=== PATIENT | male | born 1950 | race Caucasian/White ===

== ENCOUNTER 2020-09-11 19:04 | Inpatient (IN) | payer OTHER, SELFPAY ==
[2020-09-11] VITALS (19 sets, daily range): BP systolic 92–135; BP diastolic 69–116; PULSE 98–105; RESP 16–28; TEMP 36; O2SAT 92–98; BMI 27.9
--- NOTE | ~2020-09-11 | CT_ITS ---
EXAMINATION: CT brain wo con INDICATION: Lethargy, altered mental status COMPARISON: None TECHNIQUE: Standard unenhanced head CT. The dose-length product (DLP) was 681.00 mGy-cm. The mA was a djusted according to patient size. Iterative reconstruction technique was employed. FINDINGS: There is no acute intraparenchymal hemorrhage. No evidence of mass lesion. No evidence of a cute infarction. There is encephalomalacia in the right frontal lobe, consistent with prior infarctio n. There is mild periventricular and subcortical hypodensity probably related to small vessel ischemi c disease. There is mild prominence of the sulci and ventricles related to cerebral atrophy. Intracra nial calcified cerebral atherosclerosis is noted. There are no extra-axial collections. There is no m ass effect or midline shift. The orbits and soft tissues are unremarkable. The visualized sinuses an d mastoid air cells are well aerated. IMPRESSION: 1. 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 2. Age related findings. Reviewed, dictated and finalized at location A.
--- NOTE | ~2020-09-11 | XR_ITS ---
EXAMINATION: XR chest 1V portable DATE: 09/13/2020 02:20 INDICATION: Hypoxia TECHNIQUE: frontal view of the chest was obtained. COMPARISON: Chest radiograph dated 09/11/2020 FINDINGS: Unchanged linear band of discoid atelectasis/scarring extending across the right midlung zone. No oth er airspace opacities, pulmonary edema, pleural effusion or pneumothorax. The cardiomediastinal silh ouette is normal. IMPRESSION: 1. Linear discoid atelectasis/scarring in the right midlung zone. Reviewed, dictated and finalized at location A.
--- NOTE | ~2020-09-11 | XR_ITS ---
EXAMINATION: XR chest 1V INDICATION: Transient alteration of awareness TECHNIQUE: AP view of the chest is obtained. COMPARISON: None available FINDINGS: Cardiomegaly is noted. The lungs are free of acute opacities. There is no pleural effusion or pneumothorax. IMPRESSION: 1. Cardiomegaly. Reviewed, dictated and finalized at location A. IMPRESSION: 1. Cardiomegaly.
--- NOTE | 2020-09-11 19:16 | ECG_ITS ---
Measurements Intervals [place] Rate: 101 P: 117 FL: 153 QRS: 146 QRSD: 164 T: -24 QT: 422 QTc: 548 Interpretive Statements SINUS TACHYCARDIA ATRIAL AND VENTRICULAR PREMATURE COMPLEXES RIGHT BUNDLE BRANCH BLOCK LEFT POSTERIOR FASCICULAR BLOCK BASELINE ARTIFACT- I, II, AVR, AVL, AVF, V1-V2, V4-V6 ABNORMAL ECG Electronically Signed On 09-12-2020 5:48:46 CDT by Nagi Swenson D.O.
--- NOTE | 2020-09-11 19:39 | ED.AMS ---
HPI - Altered Mental Status General Chief Complaint: Altered Mental Status Stated Complaint: abnormal labs and lethargy- unknown time Time Seen by Provider: 09/11/20 19:05 History of Present Illness HPI narrative: 70 yo male presents from [facility] for altered mental status. Over the past several days he has become increasing lethargic with slurred speech. He is currently in rehab recovering from a Right tib/fib fracture. He had labs done there and was found to have moderate hyponatremia, subtherapeutic dilantin, and high phenobarbital levels. He reports feeling very fatigued and intermittently SOB. No nausea, vomiting, diarrhea, abdominal pain, dysuria, hematuria. Related Data Home Medications Medication Instructions Recorded Confirmed bimatoprost 1 drp EACH EYE HS 09/11/20 09/11/20 cholecalciferol (vitamin D3) 50 mcg PO DAILY 09/11/20 09/11/20 hydrocodone-acetaminophen 1 tablet PO Q6H PRN 09/11/20 09/11/20 phenobarbital 32.4 mg PO TID 09/11/20 09/11/20 phenytoin sodium extended 100 mg PO QID 09/11/20 09/11/20 polyethylene glycol 3350 [Miralax] 17 g PO DAILY 09/11/20 09/11/20 primidone 250 mg PO Q8H 09/11/20 09/11/20 Allergies Allergy/AdvReac Type Severity Reaction Status Date / Time Penicillins Allergy Rash Verified 09/11/20 23:41 Review of Systems Review of Systems: All systems reviewed & are unremarkable except as noted in HPI and below Constitutional: Constitutional: Denies fever(s) Eyes: Eyes: Reports no additional eye complaints ENT: Denies sore throat Cardiovascular: Cardiovascular: Denies chest pain Respiratory: Respiratory: Reports dyspnea Gastrointestinal: Gastrointestinal: Denies abdominal pain, Denies diarrhea, Denies nausea and Denies vomiting Genitourinary: Genitourinary: Denies hematuria and Denies dysuria Neurologic: Denies dizziness and Reports weakness Endocrine: Endocrine: Reports fatigue PMFSH Past Medical History Medical History (Updated 09/12/20 @ 01:24 by Maximilian Oswald MD) Seizure Tibia/fibula fracture Family History Family History Other Unknown family medical history Social History Social History Smoking status: Unknown if ever smoked Alcohol intake: unknown Substance use: unknown Substance use type: does not use Gender identity (if verbalized by the patient): Male Spiritual care concerns: No Exam Const: General: no acute distress, confusion and ill appearing Orientation/consciousness: patient oriented x3 HENMT: Head: normal to inspection Mouth: Yes dry mucous membranes Eyes: Pupils: Equal, round and reactive pupils present EOM: EOMs intact bilaterally Neck: Neck: normal visual inspection Resp: Effort & Inspection: normal respiratory effort Auscultation: clear to auscultation bilaterally Cardio: Rate: regular rate Rhythm: regular rhythm GI: GI Palp: Yes Soft to palpation and No Tenderness to palpation present (GI) Skin: General skin exam: normal color and no jaundice Wounds: wound noted Neuro: General: patient oriented x3, moves all extremities and CN's II-XI intact bilaterally Speech: Abnormal speech present slurred Extrem: General: edema bilateral (1+) Course Vital Signs Vital signs: Vital Signs Pulse Rate 105 H 09/11/20 19:07 Respiratory Rate 28 H 09/11/20 19:07 Blood Pressure 103/75 09/11/20 19:07 Pulse Oximetry 96 09/11/20 19:07 Temperature 36.0 C L 09/11/20 22:39 Pulse Rate 98 09/11/20 22:39 Respiratory Rate 24 H 09/11/20 22:39 Blood Pressure 108/86 09/11/20 22:39 Pulse Oximetry 96 09/11/20 22:39 MDM - Altered Mental Status MDM Narrative Medical decision making narrative: He appears quite dehydrated on exam. He is severely hyponatremic. Likely hypovolemic hyponatremia due to poor intake. I will admit for hydration and slow correction of hyponatremia Differential Diagnosis Differential diagnosis: Unlikely delirium, ellen
[2020-09-11 19:59] LABS: Basophils Percent Auto 0.2 % (0.2-1.2); Eosinophils Percent Auto 0.2 % (0-4.4); Hematocrit 41.5 % (42.0-52.0); Immature Granulocyte Percent A 1.6 % (0-0.5); Lymphocytes Percent Auto 14.2 % (18.3-44.2); Mean Corpuscular HGB Conc 33.7 g/dl (32-36); Mean Corpuscular Hemoglobin 30.3 pg (26-34); Mean Corpuscular Volume 89.8 fl (80-100); Mean Platelet Volume 10.9 fl (7.4-10.4); Monocytes Absolute Auto 1.5 K/mm3 (0.1-0.6); Monocytes Percent Auto 11.8 % (2.6-8.5); Neutrophils Absolute Auto 9.1 K/mm3 (1.3-6.7); Platelet Count Result 234 k/mm3 (150-375); Red Blood Count 4.62 M/mm3 (4.6-6.20); White Blood Count 12.7 K/mm3 (4.5-10.0)
[2020-09-11 20:06] LABS: Lactic Acid Reflex 2.1 mmol/L (0.7-2.1)
[2020-09-11 20:07] LABS: Alveolar/Arterial O2 Gradient 57.9 mmHg; Base Excess ABG -1.9 mEq/l (+/-2.0); Fractional Inspired Oxygen 21 %; HCO3 ABG 20.1 mEq/l (22.0-26.0); Oxygen Content ABG 18.4 %vol (16.0-22.0); Oxygen Saturation ABG 92.7 % (95.0-100.0); Oxyhemoglobin 90.5 % THb (90.0-100.0); PCO2 ABG 27.5 mmHg (35.0-45.0); PO2 ABG 58.9 mmHg (80.0-100.0); Total Hemoglobin 14.5 g/dL (12.0-18.0); pH ABG 7.481 (7.350-7.450)
[2020-09-11 20:07] LABS: Ammonia < 9 umol/L (9-30)
[2020-09-11 20:08] LABS: Device ROOM AIR; Modified Allen's Test Pass; Site Drawn RIGHT RADIAL
[2020-09-11 20:08] LABS: INR 1.4; Prothrombin Time 17.4 Seconds (11.1-14.7)
[2020-09-11 20:09] LABS: Partial Thromboplastin Time 33.7 SECONDS (22.3-36.8)
[2020-09-11 20:11] LABS: Phenytoin Dilantin 9 ug/mL (10-20)
[2020-09-11 20:23] LABS: Alanine Aminotransferase 48 U/L (4-50); Albumin Level 3.1 g/dL (3.5-5.1); Alkaline Phosphatase 141 U/L (38-126); Anion Gap 7 mmol/L (8-16); Aspartate Amino Transferase 71 U/L (17-59); Bilirubin,Total 0.6 mg/dL (0.2-1.3); Blood Urea Nitrogen 51 mg/dL (9-20); Calcium 9.5 mg/dL (8.4-10.2); Carbon Dioxide 20 mmol/L (22-30); Chloride 93 mmol/L (98-107); Estimated Glomerular Filt Rate 47; Glucose 148 mg/dL (75-110); Potassium 4.8 mmol/L (3.4-5.0); Sodium 120 mmol/L (137-145)
[2020-09-11] MEDS: SODIUM CHLORIDE 0.9% IV 1,000 ML 999 ML IV CONT (20:26)
[2020-09-11 20:45] LABS: Add Urine Microscopic? YES; Appearance Urine Clear (Clear); Bilirubin Urine Negative (Negative); Blood Urine 1+ (Negative); Color Urine Amber (Yellow); Glucose Urine UA Negative (Negative); Ketones Urine Negative (Negative); Leukocyte Esterase Ur Negative LEU/UL (Negative); Nitrate Urine Negative (Negative); Protein Urine 1+ mg/dL (Negative); Specific Grav Ur 1.019 (1.001-1.035); WBC Urine 0-3 /hpf
[2020-09-11] MEDS: LACTATED RINGERS 1,000 ML 125 ML IV CONT (22:40)
[2020-09-11 22:56] LABS: Reflex Lactic Acid Yes or No Add Lactic
--- NOTE | 2020-09-11 23:07 | ADMGEN ---
This patient, Markus Mera, was admitted to 2 Medical Room [facility]-01 @ 2220. Patient/family oriented to hospital policies and general routines including ID bracelet, bed and alarms, visiting hours, pain management, procedures, bathroom and other care routines, personal items, smoking policy, room service/diet, and visiting hours. Information on how to activate the Rapid Response Team has been discussed. Patient/Family are encouraged to report perceived risks to care and to ask questions if they do not understand what they are told or what they should do.
[2020-09-11 23:49] LABS: Lactic Acid 4.5 mmol/L (0.7-2.1)
[2020-09-12] VITALS (9 sets, daily range): BP systolic 102–113; BP diastolic 67–85; PULSE 102–109; RESP 20–22; TEMP 35.8–36.2; O2SAT 97
[2020-09-12] MEDS: LACTATED RINGERS 1,000 ML 999 ML IV CONT (00:38)
--- NOTE | 2020-09-12 02:17 | PM.IMHP ---
H&P: HPI History of Present Illness Date/Time: 09/12/20 02:17 Chief Complaint: Confusion, low-sodium Narrative: 70-year-old male with past medical history of epilepsy, peripheral neuropathy, and recent tibial fracture status post ORIF who presented to the ER from [facility] due to lethargy, new onset confusion and low sodium. The patient had ORIF of his right tibia about 3 weeks ago. [facility] Over the last several days the patient has been more lethargic. Today he seemed to be slurring his speech. He had routine labs obtained which demonstrated hemoconcentration with his hemoglobin up 2 grams from previous value on 08/28/2020. His sodium had also acutely dropped from 140 on 08/28/2020 down to 125 at the sn[facility] facility. His sodium had dropped further to 120 by the time he was evaluated in the ER. [facility] staff had also check the patient's anti epileptic levels and the patient was found to be toxic on phenobarbital with a elevated value of 57 (cutoff for normal is 40). Patient is usually alert oriented x3 but at this time patient is alert orient x1. He believes that [place]. He does follow simple commands. He has no localizing neurologic deficits on exam. He is afebrile. His mucous membranes are dry. When asked the patient if he would like a drink of water he refuses. The patient was noted to have a mildly elevated lactic acid in the ER and was given a L of fluids. His repeat lactic acid level increased up to 4.5. The lab stated that they did not have difficulty drawing the patient's labs. In the ER the patient was noted to be tachycardic. Initial EKG demonstrated frequent premature ventricular contractions right bundle-branch block and posterior left fascicular block. Patient also had trace edema to lower extremities. The patient's denies the patient having a history of CHF. Patient did have 1 episode of urinary incontinence in the ER. He has not had any urine output since he has arrived to the medical floor. The patient had come into the ER on oxygen therapy. He never had documented hypoxia. Source of information: [facility] records and ER records. Review of Systems Review of Systems: ROS unobtainable: Yes unobtainable due to mental status PMFSH Past Medical History Medical History (Updated 09/12/20 @ 02:40 by Rina Celeste DO) Constipation Glaucoma Hyperlipidemia Macular degeneration Obstructive sleep apnea Peripheral neuropathy Seizure disorder Vitamin D deficiency Surgical History Surgical History (Updated 09/12/20 @ 02:27 by Rina Celeste DO) History of colonoscopy with polypectomy Status post open reduction with internal fixation of fracture (~07/2020) Right tibial fracture Family History Family History Other Unknown family medical history Social History Social History (Updated 09/12/20 @ 02:28 by Rina Celeste DO) Social History: According to [facility] the patient is . He is a lifetime nonsmoker and does not drink alcohol. Code status: Full code per form on chart POA: Smoking status: Unknown if ever smoked Alcohol intake: unknown Substance use: unknown Substance use type: does not use Gender identity (if verbalized by the patient): Male Spiritual care concerns: No Meds Home Medications and Allergies Home Medications Medication Instructions Recorded Confirmed Type bimatoprost 1 drp EACH EYE HS 09/11/20 09/11/20 History cholecalciferol (vitamin D3) 50 mcg PO DAILY 09/11/20 09/11/20 History hydrocodone-acetaminophen 1 tablet PO Q6H PRN 09/11/20 09/11/20 History phenobarbital 32.4 mg PO TID 09/11/20 09/11/20 History phenytoin sodium extended 100 mg PO QID 09/11/20 09/11/20 History polyethylene glycol 3350 [Miralax] 17 g PO DAILY 09/11/20 09/11/20 History primidone 250 mg PO Q8
[2020-09-12 03:08] LABS: Anion Gap 6 mmol/L (8-16); Blood Urea Nitrogen 50 mg/dL (9-20); Calcium 8.8 mg/dL (8.4-10.2); Carbon Dioxide 19 mmol/L (22-30); Chloride 95 mmol/L (98-107); Estimated CRCL calculation 61 ml/min; Estimated Glomerular Filt Rate 60; Glucose 121 mg/dL (75-110); Potassium 4.5 mmol/L (3.4-5.0); Sodium 120 mmol/L (137-145)
[2020-09-12] MEDS: LATANOPROST 0.005% OP SOLN 2.5 ML BTL 1 DROP EACH EYE ×2 (03:58→20:53)
[2020-09-12] MEDS: LACTATED RINGERS 1,000 ML 125 ML IV CONT ×2 (06:18→14:06)
[2020-09-12] MEDS: PRIMIDONE 250 MG TABLET PO ×3 (06:18→21:09)
[2020-09-12 06:20] LABS: Hemoglobin 14.3 g/dL (14.0-18.0); Mean Corpuscular Volume 91.1 fl (80-100); Mean Platelet Volume 10.9 fl (7.4-10.4); Platelet Count Result 203 k/mm3 (150-375); Red Blood Count 4.61 M/mm3 (4.6-6.20); Red Cell Distribution Width 15.1 % (11.5-14.5); White Blood Count 11.9 K/mm3 (4.5-10.0)
[2020-09-12 07:03] LABS: Lactic Acid Reflex 2.2 mmol/L (0.7-2.1); Magnesium 2.2 mg/dL (1.6-2.3); Phosphorus 3.2 mg/dL (2.5-4.5); Sodium 125 mmol/L (137-145)
[2020-09-12] MEDS: PHENYTOIN SODIUM 100 MG CAP PO ×3 (09:07→20:52)
[2020-09-12] MEDS: CHOLECALCIFEROL 1,000 UNITS TABLET 2000 UNITS PO (09:07)
[2020-09-12] MEDS: polyethylene glycoL 3350 17 GM POWD.PACK PO (09:08)
[2020-09-12] MEDS: ENOXAPARIN 40 MG/0.4 ML SYRINGE SUB-Q (09:08)
[2020-09-12 11:22] LABS: Sodium 122 mmol/L (137-145)
[2020-09-12 14:38] LABS: Sodium 121 mmol/L (137-145)
--- NOTE | 2020-09-12 16:51 | P.PNIM_ITS ---
Progress Note: A&P Assessment and Plan (1) Acute hyponatremia: Code(s): E87.1 - Hypo-osmolality and hyponatremia Status: Acute Assessment and Plan: * patient came in with altered mental status * sodium level upon arrival was 120 * patient received 1 L of isotonic fluids in the ER. * Q 4 sodium labs * normal saline at 125ml an hour * labs in the a.m. * trend sodium * PT and OT * NPO diet * speech eval for dysphagia (2) Dehydration with hyponatremia: Code(s): E86.0 - Dehydration; E87.1 - Hypo-osmolality and hyponatremia Status: Acute Assessment and Plan: * sodium upon arrival was 120 * normal saline at 100ml hour * 2+ pitting edema on bilateral lower extremities * monitor fluid status * I&Os (3) Metabolic encephalopathy: Code(s): G93.41 - Metabolic encephalopathy Status: Acute Assessment and Plan: * patient came in with a sodium of 120 * according the nurse, the patient had toxic level of phenobarbital * neurology has been consulted * phenobarbital on hold * trend sodium * labs in a.m. * neurochecks q.4 (4) Lactic acidosis: Code(s): E87.2 - Acidosis Status: Acute Assessment and Plan: * lactic upon arrival was 4.5 * after 2nd bolus lactate is down to 2.2 * patient continuously getting fluids * normal saline at 125 an hour * will recheck lactic in the a.m. * trend lactic acid until below 2 (5) Phenobarbital toxicity: Qualifiers: Encounter type: initial encounter Injury intent: accidental or unintentional Qualified Code(s): T42.3X1A - Poisoning by barbiturates, accidental (unintentional), initial encounter Code(s): T42.3X1A - Poisoning by barbiturates, accidental (unintentional), initial encounter Status: Acute Assessment and Plan: * according to nursing on the phenobarbital level was at 57 * phenobarbital level rechecked pending * phenobarbital on hold * neurology consult * seizure precaution (6) Obstructive sleep apnea on CPAP: Code(s): G47.33 - Obstructive sleep apnea (adult) (pediatric); Z99.89 - Dependence on other enabling machines and devices Status: Acute Assessment and Plan: * patient was diagnosed with sleep apnea many years ago * patient used to wear CPAP * patient cannot afford a new CPAP * has not had CPAP since * trend SpO2 (7) Epilepsy: Code(s): G40.909 - Epilepsy, unspecified, not intractable, without status epilepticus Status: Acute Assessment and Plan: * chronic epilepsy * hold home phenobarbital 32.4 mg t.i.d. * continue phenytoin 100 mg p.o. q.i.d. * neuro checks * seizure precautions * neurology consult thank you for recommendations Time Spent With Patient Time with patient: 25 - 35 minutes Subjective Date/time seen: 09/12/20 16:51 patient is a 70-year-old male with past medical history of fracture, epilepsy, peripheral neuropathy who presented to the ED from [facility] for increased weakness and confusion. Patient states that he is doing fine and much better. However said that he has been at the shelter for [facility] and it seems that her call light turnaround time is not as good. She also st ated the patient drinks a lot of diet Coke and has stopped drinking diet Coke
--- NOTE | 2020-09-12 16:51 | PM.IMPN ---
Progress Note: A&P Assessment and Plan (1) Acute hyponatremia: Code(s): E87.1 - Hypo-osmolality and hyponatremia Status: Acute Assessment and Plan: patient came in with altered mental status sodium level upon arrival was 120 patient received 1 L of isotonic fluids in the ER. Q 4 sodium labs normal saline at 125ml an hour labs in the a.m. trend sodium PT and OT NPO diet speech eval for dysphagia (2) Dehydration with hyponatremia: Code(s): E86.0 - Dehydration; E87.1 - Hypo-osmolality and hyponatremia Status: Acute Assessment and Plan: sodium upon arrival was 120 normal saline at 100ml hour 2+ pitting edema on bilateral lower extremities monitor fluid status I&Os (3) Metabolic encephalopathy: Code(s): G93.41 - Metabolic encephalopathy Status: Acute Assessment and Plan: patient came in with a sodium of 120 according the nurse, the patient had toxic level of phenobarbital neurology has been consulted phenobarbital on hold trend sodium labs in a.m. neurochecks q.4 (4) Lactic acidosis: Code(s): E87.2 - Acidosis Status: Acute Assessment and Plan: lactic upon arrival was 4.5 after 2nd bolus lactate is down to 2.2 patient continuously getting fluids normal saline at 125 an hour will recheck lactic in the a.m. trend lactic acid until below 2 (5) Phenobarbital toxicity: Qualifiers: Encounter type: initial encounter Injury intent: accidental or unintentional Qualified Code(s): T42.3X1A - Poisoning by barbiturates, accidental (unintentional), initial encounter Code(s): T42.3X1A - Poisoning by barbiturates, accidental (unintentional), initial encounter Status: Acute Assessment and Plan: according to nursing on the phenobarbital level was at 57 phenobarbital level rechecked pending phenobarbital on hold neurology consult seizure precaution (6) Obstructive sleep apnea on CPAP: Code(s): G47.33 - Obstructive sleep apnea (adult) (pediatric); Z99.89 - Dependence on other enabling machines and devices Status: Acute Assessment and Plan: patient was diagnosed with sleep apnea many years ago patient used to wear CPAP patient cannot afford a new CPAP has not had CPAP since trend SpO2 (7) Epilepsy: Code(s): G40.909 - Epilepsy, unspecified, not intractable, without status epilepticus Status: Acute Assessment and Plan: chronic epilepsy hold home phenobarbital 32.4 mg t.i.d. continue phenytoin 100 mg p.o. q.i.d. neuro checks seizure precautions neurology consult thank you for recommendations Time Spent With Patient Time with patient: 25 - 35 minutes Subjective Date/time seen: 09/12/20 16:51 patient is a 70-year-old male with past medical history of fracture, epilepsy, peripheral neuropathy who presented to the ED from [facility] for increased weakness and confusion. Patient states that he is doing fine and much better. However said that he has been at the skilled nursing for rehab and it seems that her call light turnaround time is not as good. She also stated the patient drinks a lot of diet Coke and has stopped drinking diet Coke lately and states that it is because he cannot get a cup of ice from the staff. She also stated that the patient has a very sedentary lifestyle he is very content sitting in his chair watching TV at home. She also stated that the patient broke his foot and had this surgery, and last Monday the cast came off. The patient is nonweightbearing on that leg for another 14 days. She was also told that the leg had not enough healing. Sodium upon admission was 120 patient does not seem to be as confused as he was according to staff and his . Patient stated that he is feeling better
[2020-09-12 18:37] LABS: Sodium 118 mmol/L (137-145)
[2020-09-12] MEDS: SODIUM CHLORIDE 0.9% IV 1,000 ML 125 ML IV CONT (19:50)
[2020-09-12 22:05] LABS: Sodium 119 mmol/L (137-145)
[2020-09-13] VITALS: PULSE 105
[2020-09-13 01:04] LABS: Sodium Urine Random < 5 meq/L
[2020-09-13 02:09] VITALS: BP 102/82; PULSE 112; RESP 36; O2SAT 82
[2020-09-13 02:10] VITALS: O2SAT 85
[2020-09-13 02:13] VITALS: O2SAT 93
[2020-09-13] MEDS: SODIUM CHLORIDE 0.9% IV 1,000 ML 125 ML IV CONT (02:31)
[2020-09-13 02:35] VITALS: PULSE 104; O2SAT 93
[2020-09-13 02:41] VITALS: O2SAT 93
[2020-09-13 03:21] LABS: Add Urine Microscopic? YES; Appearance Urine Cloudy (Clear); Bacteria Urine 4+ /hpf; Bilirubin Urine Negative (Negative); Blood Urine 3+ (Negative); Color Urine Amber (Yellow); Glucose Urine UA Negative (Negative); Ketones Urine Negative (Negative); Leukocyte Esterase Ur 3+ LEU/UL (Negative); Mucus Urine Heavy /lpf; Nitrate Urine Negative (Negative); Protein Urine 1+ mg/dL (Negative); RBC Urine 51-75 /hpf (0-2); Specific Grav Ur 1.019 (1.001-1.035); Squamous Epithelial Cell Urine Rare /hpf (Few); WBC Clumps Urine Present /HPF; WBC Urine >75 /hpf
[2020-09-13 03:30] LABS: Hematocrit 40.4 % (42.0-52.0); Hemoglobin 12.7 g/dL (14.0-18.0); Immature Platelet Fraction Pct 7.2 % (0.9-11.2); Mean Corpuscular HGB Conc 31.4 g/dl (32-36); Mean Corpuscular Hemoglobin 30.9 pg (26-34); Mean Corpuscular Volume 98.3 fl (80-100); Mean Platelet Volume 10.5 fl (7.4-10.4); Platelet Count Result 74 k/mm3 (150-375); Red Blood Count 4.11 M/mm3 (4.6-6.20); Red Cell Distribution Width 15.7 % (11.5-14.5); White Blood Count 17.4 K/mm3 (4.5-10.0)
[2020-09-13 03:42] LABS: Albumin Level 2.3 g/dL (3.5-5.1); Alkaline Phosphatase 111 U/L (38-126); Anion Gap 10 mmol/L (8-16); Bilirubin,Total 0.9 mg/dL (0.2-1.3); Blood Urea Nitrogen 51 mg/dL (9-20); Calcium 9.7 mg/dL (8.4-10.2); Carbon Dioxide 19 mmol/L (22-30); Chloride 92 mmol/L (98-107); Estimated CRCL calculation 37 ml/min; Estimated Glomerular Filt Rate 33; Glucose 229 mg/dL (75-110); Magnesium 2.6 mg/dL (1.6-2.3); Potassium 5.6 mmol/L (3.4-5.0); Sodium 121 mmol/L (137-145)
[2020-09-13 03:50] LABS: Alanine Aminotransferase 311 U/L (4-50)
[2020-09-13 03:51] LABS: Aspartate Amino Transferase 993 U/L (17-59)
[2020-09-13 04:23] LABS: Lactic Acid Reflex 10.6 mmol/L (0.7-2.1)
--- NOTE | 2020-09-13 04:35 | P.CODEBLUE_ITS ---
Code Blue Note Code Blue Note Time Arrived at Code Blue: 0305 Initial Rhythm on Arrival: PEA Airway Management: Pt intubated during resuscitation Chest Compressions: In process on arrival to bedside Result of Code Blue: Pt Cardiac Rhythm Post Code: Asystole Code Blue Summary: Earlier in the evening the patient had developed episodes of apnea and had some hypoxia. He was satting 82% on 2 L nasal cannula. His hot supplemental oxygen was increased to 4 L nasal cannula and was satting 93-94%. I was involved in the process of stabilizing another patient ordered a stat chest x-ray. The patient does have a history of obstructive sleep apnea and I requested nursing staff order CPAP. Nursing staff place patient on CPAP of 8 and the patient has had resolution of hypoxia and had no further episodes of apnea. The patient was placed on CPAP around 2:30 a.m.. After he was placed on CPAP the patient's respiratory rate improved back down to the 20s. Nursing staff remained in the room and placed a Arnett catheter as the patient had only had about 800 of urine output for the day. Nursing staff left the room around 0240. On review of threat monitoring analyst it appears that around 2:56 a.m. the patient is heart rate dropped from the low 100s down to the 70s and subsequently became progressively more bradycardic. Nursing staff went to evaluate the patient when they arrived at the bedside the patient had an agonal respiration. They checked her pulse and no pulse was found patient was at PEA with rate of 50. Compressions were started and a code was called at 0300. I arrived at the bedside at 3:03 a.m. the patient was being ventilated by bag-valve mask. I intubated the patient during the course of the code. The patient received at least 10 rounds of epinephrine, several amps of bicarb, calcium, insulin, dextrose and IV fluids throughout the course the code. After approximately 25 minutes of resuscitation efforts the patient did have a brief episode of VFib and was drift fib related. At after defibrillation the patient is a repeat rhythm was asystole. Resuscitation efforts were continued for 37 minutes without return of perfusing rhythm. At that time patient was pronounced. Time of 0337. Labs drawn during the course of the code: White count 17.4 hemoglobin 12.7 platelet count 74,000 sodium 121 potassium 5.6 chloride 92 CO2 19 BUN 51 creatinine 2 glucose 229 lactic acid of 10.6 magnesium 2.6 AST 993 ALT 311 alk phos 111 total protein of 5 albumin 2.3 The patient's UA that was obtained when Arnett catheter was placed just prior to code and was not available for review prior to code suggested possible UTI which was a change from the patient's initially urine specimen that had been obtained on the . The patient's and son arrived at bedside shortly after the patient . A updated them on the recent events and provided my condolences. 40 minutes spent in critical care activities.
--- NOTE | 2020-09-13 05:05 | PC.NURSE ---
At 0259 observed changes on telemetry. HR went from 100 and continued to batool down. Ran back to check on patient. C-pap in place patient took two agonal respirations and stopped breathing, no pulse palpated. Compressions started and Code called. Refer to code sheet. Family arrived at 0338 and son.
--- NOTE | 2020-09-13 06:21 | WPDPROCEDUR ---
Procedures Intubation Intubation Date: 09/13/20 Intubation Time: 03:00 A pre-procedural Time-Out was completed immediately before starting the procedure and confirmed: Patient Identification, Site, Procedure, Patient Position and the Availability of Requisite Equipment: No Sedative: none Laryngoscope: Philippe ET tube size: cuffed Tube secured depth (cm): 25 Tube secured location: lips Tube placement confirmation: visualized tube passing through cords, equal breath sounds bilaterally, no breath sounds over epigastrium and confirmation by capnometry Patient tolerated procedure: other (Intubation performed during code)
[2020-09-13 06:46] LABS: Glucose Point of Care 144 mg/dl (65-105)
--- NOTE | 2020-09-13 10:31 | PC.NURSE ---
Carlo from [facility] called notifying of patient donor status. They will be picking up the patient from the [facility].
--- NOTE | 2020-09-13 10:37 | PC.NURSE ---
[facility] notified of [facility] donor status. MAT will cone picker patient from [facility].
--- NOTE | 2020-09-14 08:00 | P.DN_ITS ---
Discharge Sum: Prov Provider Primary care physician: Griffin Kan, Admitting provider: Rina Celeste DO Attending physician on admission: Rina Celeste Consults: 09/12/20 Consult to Physician Routine Comment: Consulting Provider: Marquez Carpenter Reason for consultation: hyponatremia Has provider been notified: Yes Consult to Physician Routine Comment: Spoke with Dr Hernandez @ [id number] Consulting Provider: Josiah Hernandez Reason for consultation: Siezures and phenobarbitol toxicity Has provider been notified: Yes Pronouncing clinician: Rina Celeste Discharge Sum: Diag PCOD Hyponatremia, dehydration Contributing Factors (1) Acute hyponatremia: (2) Dehydration with hyponatremia: (3) Metabolic encephalopathy: (4) Lactic acidosis: (5) Phenobarbital toxicity: (6) Obstructive sleep apnea on CPAP: (7) Epilepsy: Discharge Sum: Summary Date and Time Date of admission: 09/11/20 21:14 Date of : 09/13/20 Time of : 03:37 Summary Details: Mr. Armenta who was a 70 year old male with a past medical history of leg fracture, epilepsy, and peripheral neuropathy ordinally present to the ED for evaluation of weakness and confusion. The initial examination of the patient showed that the patient was hyponatremic with a sodium of 120. He was placed on fluids and was much more alert when he was examined. He did seem to have dysphasia and was having issues with swallowing. WBC count was a bit elevated at 11.9 down from admission. No signs of infection was noted. Testing and labs were placed. According to the district plant supervisor the patient was experiencing some periods of apnea, and desaturations. It was determined that the patient needed to be placed on a BiPap since he did use one at home. This did help to stabilize his respirations and saturation at that time, however, he was then having moments of bradycardia, and according to the note his heart rate was noted to have dropped in subsequent moments first from 100 to the 70 then again to fifty. At that time the staff checked the patient and he was noted to be in PEA. A code blue was called and CPR was initiated which was 0300, and the district plant supervisor arrived at the bedside at 0303. Patient received 10 amps of epi, several bicarb, calcium, insulin, dextrose, and fluids throughout the code. Patient was defibrillated one time, due to V. Fib cardiac rhythm, which then was noted to have turned to asystole. CPR and resuscitation resumed for another 37 minutes without the return of ROSC. Patient was pronounced at 0337. Liver enzymes were elevated, WBC increased to 17.4 and BUN and Creatinine were also elevated. Family arrive to the bedside. 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
[2020-09-17 06:05] LABS: Osmolality, Urine 552 mOsm/kg (50-1200)
== END 2020-09-13 03:37 | disposition expired | DRG 917 ==
LOC: ANHED 20:16 → ANH2MED 21:46
PROVIDERS: Admitting Provider Internal Medicine; Emergency Provider Emergency Medicine; PCP Family Medicine; Visit Provider Nurse Practitioner
DX: T42.3X1A Poisoning by barbiturates, accidental (unintentional), initial encounter (principal); G93.41 Metabolic encephalopathy; E87.1 Hypo-osmolality and hyponatremia; E87.2 Acidosis; G40.909 Epilepsy, unspecified, not intractable, without status epilepticus; E86.0 Dehydration; G47.33 Obstructive sleep apnea (adult) (pediatric); G62.9 Polyneuropathy, unspecified; I49.01 Ventricular fibrillation; I46.2 Cardiac arrest due to underlying cardiac condition; Z79.899 Other long term (current) drug therapy; Z88.0 Allergy status to penicillin; Z99.89 Dependence on other enabling machines and devices
CPT/HCPCS: 36415; 36600; 51701; 70450; 71045; 80048; 80053; 80184; 80185; 81001; 82140; 82805; 82948; 83605; 83735; 83935; 84100; 84295; 84300; 84443; 85025; 85027; 85055; 85610; 85730; 87077; 87086; 87088; 87186; 92950; 93005; 94660; 96360; 99285; A9270; J0171; J1650; J7030; J7120